=== PATIENT | male | born 1945 | race Caucasian/White ===

== ENCOUNTER → 2016-11-06 | Day surgery (SDC) | payer MEDICARE, BC ==
[~2016-11-06] MED LIST: ALLO300T2 PO; AMOX500T2 PO; ASPI325T PO; ATEN50TA PO; BUPIVACAINE/EPINEPHRINE 0.5% PF 30 ML VIAL ONE; FLUTI220I INH; ISOS20TA PO; KETO2CRE TOPICAL; KETOROLAC TROMETHAMINE 30 MG/ML (IVP) VIAL IV PUSH ONE; LACTATED RINGER'S 1,000 ML BAG IV ONE; LIDOCAINE 1%/EPINEPHrine 1:100,000 SOLN 30 ML VIAL ONE; LISI10TA3 PO; MIDAZOLAM HCL 2 MG/2 ML VIAL ONE; NEOMYCIN/POLYMYXIN/BACITRACIN OINT 15 GM TUBE ONE; OMEP20TA PO; PROPOFOL 100 MG/10 ML INJ IV ONE; TAMS0.4C4 PO; ZOCO80TA PO
--- NOTE | 2016-11-06 17:07 | TN ---
cc: JOVANNY MOLINA M.D. DATE OF SURGERY 11/06/2016 PREOPERATIVE DIAGNOSIS Deep skin lesion right shoulder and right posterior back. POSTOPERATIVE DIAGNOSIS Deep skin lesion right shoulder and right posterior back. PROCEDURE 1. Excision of right posterior back skin lesion 6.5 x 4.0 cm elliptical incision double layer closure. 2. Excision of right posterior shoulder skin lesion 3 x 2 cm elliptical incision, double layer closure. ANESTHESIA TIVA. SURGEON Dr. Molina. INDICATION The patient is a pleasant gentleman who had these two bothersome skin lesions that were intermittently draining. Plans were made for excision of these deep tissue skin lesions. PROCEDURE DETAILS The patient was taken to the operating room and placed in the supine position. After anesthesia he was placed over on the left lateral decubitus position. There area was prepped with Betadine. We had previously marked the two areas with the patient's assistance. Time-out was done and he is prepped and draped with Betadine. First we direct our attention to the bigger lesion and then the right posterior back. An elliptical incision is made 6.5 x 420 cm, dissected circumferentially around into the deep subcutaneous tissue and it is passed off the field. The flaps were created inferiorly and superiorly and laterally to reapproximate the deep layer with a 3-0 Vicryl and skin is reapproximated with 3-0 nylon interrupted. We then direct our attention to the right posterior shoulder lesion. An elliptical incision is made 3 x 2 cm. Similar dissection was carried out to completely remove the offending lesion. Deep layer was closed with 3-0 Vicryl and skin is closed with 3-0 nylon. Sterile bandage applied. The patient tolerated the procedure well and had no immediate postop complications. Jovanny Molina MD JKAREN/KK /4:22 PM /4:58 PM
== END | disposition home or self-care (01) ==
LOC: ESDC 13:47
PROVIDERS: ATTEND Surgery
DX: L72.0 Epidermal cyst (principal); L70.0 Acne vulgaris; E11.9 Type 2 diabetes mellitus without complications
CPT/HCPCS: 00400; 23071; 24075; 82948; 88304; 88305; J1885; J2250; J3010; J7120

== ENCOUNTER 2017-02-10 10:56 | Emergency (ER) | payer MEDICARE, BC ==
[~2017-02-10] VITALS: Ht 170.2 cm; Wt 88.0 kg
[2017-02-10 10:57] VITALS: BP 156/73; PULSE 68; RESP 20; TEMP 97.9; O2SAT 96
[2017-02-10] MEDS ORDERED: OMEP20TA PO (11:17)
[2017-02-10] MEDS ORDERED: ALLO300T2 PO (11:17)
[2017-02-10] MEDS ORDERED: ATEN50TA PO (11:17)
[2017-02-10] MEDS ORDERED: LISI10TA3 PO (11:17)
[2017-02-10] MEDS ORDERED: ZOCO80TA PO (11:17)
[2017-02-10] MEDS ORDERED: TAMS0.4C4 PO (11:17)
[2017-02-10] MEDS ORDERED: ASPI325T PO (11:17)
[2017-02-10] MEDS ORDERED: FLUTI220I INH (11:17)
[2017-02-10] MEDS ORDERED: ISOS20TA PO (11:19)
[2017-02-10] MEDS ORDERED: AMOX500T2 PO (11:19)
[2017-02-10] MEDS ORDERED: KETO2CRE TOPICAL (11:19)
--- NOTE | 2017-02-10 11:32 | PD ---
HPI Chief Complaint: Injury Time Seen by Provider: 11:08 Travel History International Travel<30 days: Yes Contact w/Intl Traveler<30days: Yes Name of Country Traveled to: [place] Traveled to known affect area: No History of Present Illness HPI 71-year-old male came to the emergency room due to a left clavicle injury 12 days ago after he fell on a cruise ship. He had an x-ray done in the ship and showed clavicular fracture. However patient just landed home today and came directly here. He does have an arm sling that he has been wearing. Vital signs are stable. Patient is taking Tylenol for his pain and he says it's working. Today actually his arm feels little better he says. [facility] Past Medical History Narrative Medical List of his past medical, surgical, social and family history is reviewed from the nursing note. Hx Anticoagulant Therapy: Yes Cardiovascular Problems: Yes (BYPASS) Diabetes: Yes Patient Takes Glucophage: Yes Hypertension: Yes Past Surgical History Cardiac Surgery: Yes Coronary Artery Bypass Graft: Yes Social History Alcohol Use: No Tobacco Use: No Substance Use: No Allergies-Medications (Allergen,Severity, Reaction): Coded Allergies: No Known Allergies (Unverified , 02/10/17) Comments No known drug allergies. Reported Meds & Prescriptions Reported Meds & Active Scripts Active Reported Amoxicillin-Clavulanate 500-125 mg Tab 500 Mg PO BID Ketoconazole Topical 2% Cream 1 Applic TOPICAL BID Isosorbide Mononitrate 20 Mg Tab 30 Mg PO BID Take 2 doses 7 hours apart. Aspirin 325 Mg Tab 325 Mg PO BID Omeprazole 20 Mg Tab 20 Mg PO DAILY Zocor (Simvastatin) 80 Mg Tab 80 Mg PO DAILY Flovent Hfa 12 GM Inh (Fluticasone Propionate) 220 Mcg/Act Inh 1 Puff INH BID Use daily at the same time. Tamsulosin (Tamsulosin HCl) 0.4 Mg Cap 0.4 Mg PO HS Allopurinol 300 Mg Tab 300 Mg PO DAILY Atenolol 50 Mg Tab 50 Mg PO DAILY Lisinopril 10 Mg Tab 10 Mg PO DAILY Narrative Medication List of his home medications reviewed from the nursing note. Review of Systems Except as stated in HPI: all other systems reviewed are Neg Physical Exam Narrative GENERAL: Awake, alert, elderly, no obvious distress SKIN: Focused skin assessment warm/dry. Some ecchymosis over the left shoulder area with tenderness on palpation. HEAD: Atraumatic. Normocephalic. EYES: Pupils equal and round. No scleral icterus. No injection or drainage. ENT: No nasal bleeding or discharge. Mucous membranes pink and moist. NECK: Trachea midline. No JVD. CARDIOVASCULAR: Regular rate and rhythm. No murmur appreciated. RESPIRATORY: No accessory muscle use. Clear to auscultation. Breath sounds equal bilaterally. GASTROINTESTINAL: Abdomen soft, non-tender, nondistended. Hepatic and splenic margins not palpable. MUSCULOSKELETAL: No obvious deformities. No clubbing. No cyanosis. No edema. Decreased range of motion at the left shoulder joint due to the pain NEUROLOGICAL: Awake and alert. No obvious cranial nerve deficits. Motor grossly within normal limits. Normal speech. PSYCHIATRIC: Appropriate mood and affect; insight and judgment normal. Data Data Last Documented VS Orders Clavicle (02/10/17 ) Complete Blood Count With Diff (02/10/17 12:24) Basic Metabolic Panel (Bmp) (02/10/17 12:24) Sling Cradle Arm (02/10/17 ) Sling Cradle Arm (02/10/17 ) Labs MDM Medical Decision Making Medical Screen Exam Complete: Yes Emergency Medical Condition: Yes Medical Record Reviewed: Yes Differential Diagnosis Clavicle fracture Narrative Course 2:17 PM repeat x-ray of his clavicle shows the fracture. Blood test results are within normal limit. Patient will be discharged home. He is asked to continue wearing his sling. He'll be given a follow-up with Dr. Rhodes from orthopedic. Procedures EKG Prior to Arrival: No Diagnosis Primary Impression: Clavicle fracture Qualified Code: S42.035A - Closed nondisplaced fracture of acromial end of left clavicle, initial encounter Referrals: Washington Rhodes Jr., MD 2 days Additional Instructions: Please return to the ER if the condition worsens or any other new concerns. Take Tylenol for your pain as needed just like you have been doing so far. Use the sling on majority of the times. Keep your arm mobile however with some light exercise. Med/Other Pt SpecificInfo: No Change to Meds Disposition: 01 DISCHARGE HOME Condition: Stable Misty Sepulveda MD Feb 10, 2017 11:32 Mean Platelet Volume 8.6 FL Neutrophils (%) (Auto) 66.2 % Lymphocytes (%) (Auto) 21.6 % Monocytes (%) (Auto) 10.4 % Eosinophils (%) (Auto) 1.2 % Basophils (%) (Auto) 0.6 % Neutrophils # (Auto) 2.9 TH/MM3 Lymphocytes # (Auto) 0.9 TH/MM3 Monocytes # (Auto) 0.4 TH/MM3 Eosinophils # (Auto) 0.1 TH/MM3 Basophils # (Auto) 0.0 TH/MM3 CBC Comment DIFF FINAL Differential Comment Sodium Level 135 MEQ/L Potassium Level 4.0 MEQ/L Chloride Level 99 MEQ/L Carbon Dioxide Level 29.2 MEQ/L Anion Gap 7 MEQ/L Blood Urea Nitrogen 8 MG/DL Creatinine 0.74 MG/DL Estimat Glomerular Filtration 104 ML/MIN Rate Random Glucose 164 MG/DL Calcium Level 9.2 MG/DL MDM Medical Decision Making Medical Screen Exam Complete: Yes Emergency Medical Condition: Yes Medical Record Reviewed: Yes Differential Diagnosis Clavicle fracture Narrative Course 2:17 PM repeat x-ray of his clavicle shows the fracture. Blood test results are within normal limit. Patient will be discharged home. He is asked to continue wearing his sling. He'll be given a follow-up with Dr. Rhodes from orthopedic. Procedures EKG Prior to Arrival: No Diagnosis Primary Impression: Clavicle fracture Qualified Code: S42.035A - Closed nondisplaced fracture of acromial end of left clavicle, initial encounter Referrals: Washington Rhodes Jr., MD 2 days Additional Instructions: Please return to the ER if the condition worsens or any other new concerns. Take Tylenol for your pain as needed just like you have been doing so far. Use the sling on majority of the times. Keep your arm mobile however with some light exercise. Med/Other Pt SpecificInfo: No Change to Meds Disposition: 01 DISCHARGE HOME Condition: Stable Misty Sepulveda MD Feb 10, 2017 11:32
[2017-02-10 12:38] LABS: AUTOMATED NEUTROPHIL # 2.9 TH/MM3 (1.8-7.7); BASOPHIL % 0.6 % (0.0-2.0); EOSINOPHIL # 0.1 TH/MM3 (0-0.4); EOSINOPHIL % 1.2 % (0.0-4.0); HEMO FLAGS DIFF FINAL; LYMPH % 21.6 % (9.0-44.0); LYMPHOCYTE # 0.9 TH/MM3 (1.0-4.8); MEAN CORPUSCULAR HEMOGLOBIN 30.1 PG (27.0-34.0); MEAN CORPUSCULAR HGB CONC 32.4 % (32.0-36.0); MONO % 10.4 % (0.0-8.0); NEUT % 66.2 % (16.0-70.0); PLATELET COUNT 160 TH/MM3 (150-450); RED CELL DISTRIBUTION WIDTH 13.9 % (11.6-17.2); WHITE BLOOD COUNT 4.3 TH/MM3 (4.0-11.0)
[2017-02-10 12:52] LABS: BICARBONATE 29.2 MEQ/L (21.0-32.0)
--- NOTE | 2017-02-10 13:01 | RADRPT ---
EXAM DATE/TIME: 02/10/2017 12:47 [facility] COMPARISON: No previous studies available for comparison. INDICATIONS : Left clavicle pain, fall. MEDICAL HISTORY : None. SURGICAL HISTORY : None. ENCOUNTER: Initial ACUITY: 1 week PAIN SCORE: 0/10 LOCATION: Left clavicle FINDINGS: There is a fracture of the distal left clavicle. There are degenerative changes present at the gleno humeral joint. Moderate subacromial spurring is present. CONCLUSION: 1. Significant degenerative changes. 2. Fracture of the distal left clavicle. Flaco Camilo MD FACR on February 10, 2017 at 12:49 Board Certified Radiologist. This report was verified electronically.
[2017-02-10 13:14] VITALS: BP 142/67; PULSE 63; RESP 18; O2SAT 97
== END 2017-02-10 14:51 | disposition home or self-care (01) ==
LOC: NEPC 10:56
DX: S42.035A Nondisplaced fracture of lateral end of left clavicle, initial encounter for closed fracture (principal); E11.9 Type 2 diabetes mellitus without complications; I10 Essential (primary) hypertension; Z95.1 Presence of aortocoronary bypass graft; W19.XXXA Unspecified fall, initial encounter; Y93.9 Activity, unspecified; Y92.814 Boat as the place of occurrence of the external cause
CPT/HCPCS: 73000; 80048; 85025; 99283

== ENCOUNTER 2017-09-11 07:27 | Day surgery (SDC) | payer MEDICARE, BC ==
[2017-09-11] VITALS (7 sets, daily range): BP systolic 87–131; BP diastolic 43–73; PULSE 55–68; RESP 16–20; TEMP 97.6–98; O2SAT 92–94
[~2017-09-11] VITALS: Ht 170.2 cm; Wt 84.1 kg
[~2017-09-11 07:27] MED LIST changes: +ASPI-183 PO; -ASPI325T PO; -BUPIVACAINE/EPINEPHRINE 0.5% PF 30 ML VIAL ONE; -KETOROLAC TROMETHAMINE 30 MG/ML (IVP) VIAL IV PUSH ONE; -LACTATED RINGER'S 1,000 ML BAG IV ONE; -LIDOCAINE 1%/EPINEPHrine 1:100,000 SOLN 30 ML VIAL ONE; -MIDAZOLAM HCL 2 MG/2 ML VIAL ONE; -NEOMYCIN/POLYMYXIN/BACITRACIN OINT 15 GM TUBE ONE; -OMEP20TA PO; +OMEP20TA93 PO; -PROPOFOL 100 MG/10 ML INJ IV ONE
[2017-09-11] MEDS ORDERED: SODIUM CHLORIDE 0.9% 1000 ML IV SCH (08:00)
[2017-09-11] MEDS ORDERED: POVIDONE IODINE 5% (ANTISEPSIS KIT) 4 APPLICATIONS EACH NARE SCH (08:30)
[2017-09-11] MEDS ORDERED: ceFAZolin 2 GM PREMIX 50 ML - implanted port/tunneled catheter insertion IV SCH (08:30)
[2017-09-11] MEDS ORDERED: CHLORHEXIDINE GLUCONATE 2 % 1 PACK (2 CLOTHS) TOPICAL SCH (08:30)
[2017-09-11] MEDS ORDERED: VANCOMYCIN 1000 MG/NS 250 ML - implanted port/tunneled catheter IV SCH ×2 (08:30)
[2017-09-11 08:38] LABS: AUTOMATED NEUTROPHIL # 4.3 TH/MM3 (1.8-7.7); BASOPHIL # 0.1 TH/MM3 (0-0.2); EOSINOPHIL # 0.2 TH/MM3 (0-0.4); EOSINOPHIL % 2.6 % (0.0-4.0); HEMATOCRIT 38.9 % (39.0-51.0); HEMOGLOBIN 13.2 GM/DL (13.0-17.0); LYMPH % 21.8 % (9.0-44.0); LYMPHOCYTE # 1.4 TH/MM3 (1.0-4.8); MEAN CELL VOLUME 93.1 FL (80.0-100.0); MEAN CORPUSCULAR HEMOGLOBIN 31.6 PG (27.0-34.0); MEAN CORPUSCULAR HGB CONC 33.9 % (32.0-36.0); MEAN PLATELET VOLUME 8.5 FL (7.0-11.0); MONO % 8.6 % (0.0-8.0); MONOCYTE # 0.6 TH/MM3 (0-0.9); PLATELET COUNT 188 TH/MM3 (150-450); RED BLOOD COUNT 4.17 MIL/MM3 (4.50-5.90); RED CELL DISTRIBUTION WIDTH 14.2 % (11.6-17.2); WHITE BLOOD COUNT 6.5 TH/MM3 (4.0-11.0)
[2017-09-11 08:44] LABS: PROTHROMBIN TIME - PATIENT 10.6 SEC (9.8-11.6)
[2017-09-11] MEDS ORDERED: MIDAZOLAM HCL 2 MG/2 ML VIAL ONE (09:21)
--- NOTE | 2017-09-11 10:42 | PD.RAD ---
Post Procedure Progress Note Pre Procedure Diagnosis: (1) ALS (amyotrophic lateral sclerosis) Post Procedure Diagnosis: (1) ALS (amyotrophic lateral sclerosis) Procedure Date: Sep 11, 2017 Supervising Radiologist: Juan M Boyd Proceduralist/Assist: Dayne Hare, RT(R), Susana Mejia RT(R)() Anesthesia: Conscious Sedation Plan of Activity Patient to Unit: ROPU Patient Condition: Good See PACS Report for procedural detail/treatment Juan M Boyd MD Sep 11, 2017 10:42
--- NOTE | 2017-09-11 16:34 | RADRPT ---
EXAM DATE/TIME: 09/11/2017 10:55 [facility] COMPARISON: No previous studies available for comparison. INDICATIONS : Patient presents with amyotrophic lateral sclerosis in need of port placement for treatment. MEDICAL HISTORY : ALS Clavicle FX CAD HTN Hyperlipidemia Type II DM Gout GERD Diverticulosis BPH Hyperthyroidism SURGICAL HISTORY : Right ankle pinning Parathyroidgland Left knee arthroscopy CABG Pilonidal cyst removal ENCOUNTER: Initial ACUITY: 1 month PAIN SCORE: 0/10 LOCATION: N/A FLUORO TIME: 1.5 minutes IMAGE SERIES: SEDATION TIME: 45 minutes ACCESS: Left internal jugular vein SEDATION: 1.) 3 mg midazolam (Versed) IV 2.) 150 mcg fentanyl (Sublimaze) IV Prophylactic antibiotics were administered with appropriate pre-procedure timing. Vancomycin within 2 hours of procedure, Ancef (or alternative) within 1 hour of procedure. DEVICE: 1. 8 [place] Ze[place]ander single lumen 8F Bard Power Port Vaccess CT PROCEDURE : 1. Continuous pulse oximetry and EKG monitoring. 2. Intravenous conscious sedation. 3. Ultrasound guidance for venous access. 4. Fluoroscopic guided implantable central venous port placement. The patient was placed supine. The neck was prepped in sterile fashion. Full sterile technique was u sed, including cap, mask, sterile gloves and gown, and a large sterile sheet. Hand hygiene and 2% ch lorhexidine Betadine was utilized per protocol for cutaneous antisepsis with appropriate dry time for site. Sterile gel and sterile probe cover were utilized for ultrasound guidance. The skin and sub cutaneous tissues were infiltrated with local anesthetic solution. Ultrasound evaluation of the right neck demonstrates an occluded right internal jugular vein. Under d irect ultrasound guidance, central venous access was accomplished in the targeted vessel. The ultras ound images depicting access guidance were stored and saved to PACS for permanent record. A subcutan eous pocket was created using blunt dissection. The port was introduced to the pocket. The catheter tubing was fed through a subcutaneous tunnel to the venotomy site. The catheter tubing was cut to a suitable length and then was introduced through a valved Peel-Away sheath and positioned with cathet er tubing tip at the cavo-atrial junction level. The pocket incision was closed with subcuticular Vi cryl suture. Steri-Strips were applied. The port was flushed and locked with heparin solution per p rotocol. Sterile dressing was applied to the site. The patient tolerated the procedure well. Conscious sedation was performed with the prescribed dosages and duration as above in the presence of an independent trained radiology nurse to assist in the monitoring of the patient. EKG and oximetry remained stable throughout the procedure. The patient tolerated the procedure well and there were no complications. The patient was sent to post anesthesia recovery in stable condition. CONCLUSION: 1. Thrombosed right internal jugular vein. 2. Uncomplicated ultrasound and fluoroscopic guided implanted central venous port catheter placement as described in detail above. An 8 [place] Power port was placed. Juan M Boyd MD on September 11, 2017 at 16:31 Board Certified Radiologist. This report was verified electronically.
== END 2017-09-11 12:50 | disposition home or self-care (01) ==
LOC: HROP 07:27 → HRIP 07:28 → HROP 12:50
PROVIDERS: ATTEND Internal Medicine Hematology
DX: G12.21 Amyotrophic lateral sclerosis (principal); I25.10 Atherosclerotic heart disease of native coronary artery without angina pectoris; I10 Essential (primary) hypertension; E78.5 Hyperlipidemia, unspecified; E11.9 Type 2 diabetes mellitus without complications; M10.9 Gout, unspecified; K21.9 Gastro-esophageal reflux disease without esophagitis; N40.0 Benign prostatic hyperplasia without lower urinary tract symptoms; E05.90 Thyrotoxicosis, unspecified without thyrotoxic crisis or storm; Z95.1 Presence of aortocoronary bypass graft; Z01.818 Encounter for other preprocedural examination
CPT/HCPCS: 36561; 76937; 77001; 85025; 85610; 85730; 99152; 99153; C1769; C1788; C1894; J1642; J2250; J3010; J3370; J7050

== ENCOUNTER 2018-01-08 16:41 | Emergency (ER) | payer MEDICARE, BC ==
[~2018-01-08] VITALS: Ht 170.2 cm; Wt 84.0 kg
[2018-01-08 16:43] VITALS: PULSE 65; RESP 18; TEMP 97.5; O2SAT 95
[2018-01-08] MEDS ORDERED: EDAR30PI IV (16:59)
[2018-01-08] MEDS ORDERED: RILU1TAB2 PO (16:59)
[2018-01-08 17:14] VITALS: BP 151/70
--- NOTE | 2018-01-08 17:29 | PD ---
HPI Chief Complaint: Headache Time Seen by Provider: 17:11 Travel History International Travel<30 days: No Contact w/Intl Traveler<30days: No Traveled to known affect area: No History of Present Illness HPI 72-year-old male with a history of ALS presents emergency department for evaluation of head pain, neck pain, lightheadedness that started Friday after a fall. Patient says that he fell hitting the back of his head. Denies loss of consciousness, blurred vision. Says that when he lays down he feels as if his "body is going to cycle down" and describes this further stating that he feels like he is going to pass out. This lasts for several seconds and then goes away. Says the same thing occurs when he sits up. Says he has to sit on the side of the bed before his symptoms resolved. Patient says he has had more difficulty walking as a result of this fall. Says he takes aspirin daily but no other blood thinners. Patient is a diabetic as well. Patient's neurologist is Dr. Kat bledsoe at [facility] in [place]. Note that patient does refuse to receive infusions and medications for ALS. He denies urinary frequency or incontinence. PFSH Past Medical History Hx Anticoagulant Therapy: Yes Cardiovascular Problems: Yes (BYPASS, angina) Diabetes: Yes Patient Takes Glucophage: No Gastrointestinal Disorders: Yes (diverticulosis) Genitourinary: Yes (prostate) Hepatitis: No Hiatal Hernia: No Hypertension: Yes Implanted Vascular Access Dvce: Yes Musculoskeletal: Yes (difficulity holding with his hands, gout) Neurologic: Yes (ALS) Psychiatric: No Reproductive: No Respiratory: No Tetanus Vaccination: Unknown Influenza Vaccination: Yes ?: Not Past Surgical History AICD: No Cardiac Surgery: Yes (cabg) Coronary Artery Bypass Graft: Yes Joint Replacement: No Pacemaker: No Other Surgery: Yes (port to left chest ) Social History Alcohol Use: No Tobacco Use: No (quit 1983) Substance Use: No Allergies-Medications (Allergen,Severity, Reaction): Coded Allergies: No Known Allergies (Unverified Allergy, Unknown, 01/08/18) Reported Meds & Prescriptions Reported Meds & Active Scripts Active Meclizine (Meclizine HCl) 25 Mg Tab 25 Mg PO TID PRN 5 Days 1/2 to 1 tab by mouth up to 3 times daily as needed for vertigo. Reported Radicava (Edaravone) 30 Mg/100 Ml Piggyback Unknown Dose IV 10 DAYS MONTH Riluzole 50 Mg Tab 1 Tab PO HS Ketoconazole Topical 2% Cream 1 Applic TOPICAL BID Isosorbide Mononitrate 20 Mg Tab 30 Mg PO BID Take 2 doses 7 hours apart. Aspirin 325 Mg Tab 325 Mg PO BID Omeprazole 20 Mg Tab 20 Mg PO DAILY Flovent Hfa 12 GM Inh (Fluticasone Propionate) 220 Mcg/Act Inh 1 Puff INH BID Use daily at the same time. Tamsulosin (Tamsulosin HCl) 0.4 Mg Cap 0.4 Mg PO HS Allopurinol 300 Mg Tab 300 Mg PO DAILY Atenolol 50 Mg Tab 25 Mg PO DAILY Review of Systems Except as stated in HPI: all other systems reviewed are Neg Physical Exam Narrative GENERAL: Well-developed well-nourished no apparent distress SKIN: Focused skin assessment warm/dry. HEAD: Tenderness palpation to the occipital region. Normocephalic. EYES: Pupils equal and round. No scleral icterus. No injection or drainage. ENT: No nasal bleeding or discharge. Mucous membranes pink and moist. NECK: Trachea midline. No JVD. Tenderness palpation to the C3-C4 region without step-offs or deformities. CARDIOVASCULAR: Regular rate and rhythm. No murmur appreciated. RESPIRATORY: No accessory muscle use. Clear to auscultation. Breath sounds equal bilaterally. MUSCULOSKELETAL: No obvious deformities. No clubbing. No cyanosis. No edema. NEUROLOGICAL: Awake and alert. Cranial nerves II through XII intact. Motor and sensory grossly within normal limits. Rapid alternating movements, finger to nose, heel fernández normal. Five out of 5 muscle strength in all muscle groups. Normal speech. Patient is normally weak in the trunk and has a difficult time with sitting up without assistance. Unable to reproduce his symptoms with laying flat and sitting up BACK: No CVA tenderness. No rash. No point tenderness on palpation of the spine. PSYCHIATRIC: Appropriate mood and affect; insight and judgment normal. Data Data Last Documented VS Vital Signs Date Time Temp Pulse Resp B/P (MAP) Pulse Ox O2 Delivery O2 Flow Rate FiO2 01/08/18 19:02 01/08/18 16:43 97.5 [address] Brain W/O Iv Contrast(Rout) (01/08/18 ) Ct Cerv Spine W/O Contrast (01/08/18 ) Ed Discharge Order (01/08/18 18:34) [facility] Medical Decision Making Medical Screen Exam Complete: Yes Emergency Medical Condition: Yes Differential Diagnosis Concussion, ICH, SAH, head contusion, neck contusion Narrative Course 72-year-old male with a history of ALS presents emergency department for evaluation of head pain, neck pain, lightheadedness that started Friday after a fall. Patient says that he fell hitting the back of his head. Denies loss of consciousness, blurred vision. Says that when he lays down he feels as if his "body is going to cycle down" and describes this further stating that he feels like he is going to pass out. This lasts for several seconds and then goes away. Says the same thing occurs when he sits up. Says he has to sit on the side of the bed before his symptoms resolved. Patient says he has had more difficulty walking as a result of this fall. Says he takes aspirin daily but no other blood thinners. Patient is a diabetic as well. Patient's neurologist is Dr. Stephens at [facility] in [place]. Note that patient does refuse to receive infusions and medications for ALS. He denies urinary frequency or incontinence. Vital signs are stable. His exam findings are unremarkable except for truncal weakness which patient says is normal. Unable to reproduce symptoms with positional changes. CT head and neck ordered for evaluation. Patient ambulated to and from the bathroom in the emergency department without any issue. There is no evidence of imbalance seen today. Patient will be discharged with meclizine. Advised use caution as this may make him feel drowsy. Advised that he should use his walker or other assistive devices to reduce the chance of falling. Patient should follow-up with his primary care physician and neurologist as soon as possible. Return for worsening or persistent symptoms. Diagnosis Primary Impression: Post concussion syndrome Additional Impression: Vertigo Referrals: Neurologist Primary Care Physician Additional Instructions: Follow up with your primary care physician within 2-3 days. If your symptoms persist or worsen, return to the emergency department. Take medication as prescribed. Use caution as meclizine may make you feel drowsy. I recommend following up with her primary care physician and neurologist within 1 week. If your symptoms persist or worsen return to the emergency department. Continue to use your walker or other assistive devices to reduce the chance of falling. Scripts Meclizine (Meclizine) 25 Mg Tab 25 MG PO TID Y for VERTIGO for 5 Days, TAB 0 Refills 1/2 to 1 tab by mouth up to 3 times daily as needed for vertigo. Prov: Nathan Carter MD 01/08/18 Disposition: 01 DISCHARGE HOME Condition: Stable Sarah Mcneal January 08, 2018 17:29
--- NOTE | 2018-01-08 18:22 | RADRPT ---
EXAM DATE/TIME: 01/08/2018 18:07 [facility] COMPARISON: No previous studies available for comparison. INDICATIONS : Trauma; fall. RADIATION DOSE: 63.00 CTDIvol (mGy) MEDICAL HISTORY : Hypertension. Cardiovascular disease SURGICAL HISTORY : None. ENCOUNTER: Initial ACUITY: 2 days PAIN SCALE: 5/10 LOCATION: cranial TECHNIQUE: Multiple contiguous axial images were obtained of the head. Using automated exposure control and adj ustment of the mA and/or kV according to patient size, radiation dose was kept as low as reasonably a chievable to obtain optimal diagnostic quality images. DICOM format image data is available electro nically for review and comparison. FINDINGS: CEREBRUM: The ventricles are normal for age. No evidence of midline shift, mass lesion, hemorrhage or acute in farction. No extra-axial fluid collections are seen. POSTERIOR FOSSA: The cerebellum and brainstem are intact. The 4th ventricle is midline. The cerebellopontine angle i s unremarkable. EXTRACRANIAL: The visualized portion of the orbits is intact. SKULL: The calvaria is intact. No evidence of skull fracture. CONCLUSION: No acute disease. Matthew Cabral MD on January 08, 2018 at 18:20 Board Certified Radiologist. This report was verified electronically.
--- NOTE | 2018-01-08 18:28 | RADRPT ---
EXAM DATE/TIME: 01/08/2018 18:10 [facility] COMPARISON: No previous studies available for comparison. INDICATIONS : Trauma; fall. RADIATION DOSE: 26.65 CTDIvol (mGy) MEDICAL HISTORY : Hypertension. Cardiovascular disease SURGICAL HISTORY : None. ENCOUNTER: Initial ACUITY: 1 day PAIN SCALE: 5/10 LOCATION: Bilateral neck TECHNIQUE: Volumetric scanning of the cervical spine was performed. Multiplanar reconstructions in the sagittal, coronal and oblique axial planes were performed. Using automated exposure control and adjustment o f the mA and/or kV according to patient size, radiation dose was kept as low as reasonably achievable to obtain optimal diagnostic quality images. DICOM format image data is available electronically f or review and comparison. FINDINGS: VERTEBRAE: Normal vertebral body height. ALIGNMENT: No evidence of subluxation. C2-C3: The bony spinal canal is normal in size. No evidence of disc bulge or herniation. The neural forami na are bilaterally patent. C3-C4: Posterior disc osteophyte complex without canal stenosis. The neural foramina are bilaterally patent . C4-C5: Posterior disc osteophyte complex without canal stenosis. Neural foramen are patent. C5-C6: Posterior disc osteophyte complex without canal stenosis. The neural foramina are bilaterally patent . C6-C7: The bony spinal canal is normal in size. No evidence of disc bulge or herniation. The neural forami na are bilaterally patent. C7-T1: The bony spinal canal is normal in size. No evidence of disc bulge or herniation. The neural forami na are bilaterally patent. CONCLUSION: No fracture subluxation. Multilevel degenerative changes. Matthew Cabral MD on January 08, 2018 at 18:24 Board Certified Radiologist. This report was verified electronically.
[2018-01-08] MEDS ORDERED: MECL-62 PO (18:32)
== END 2018-01-08 19:05 | disposition home or self-care (01) ==
LOC: PHEFT 16:41
DX: F07.81 Postconcussional syndrome (principal); R42 Dizziness and giddiness; G12.21 Amyotrophic lateral sclerosis; E11.9 Type 2 diabetes mellitus without complications; I10 Essential (primary) hypertension; M10.9 Gout, unspecified; Z87.891 Personal history of nicotine dependence; Z79.82 Long term (current) use of aspirin; Z79.899 Other long term (current) drug therapy
CPT/HCPCS: 70450; 72125; 99283